=== PATIENT | male | born 1995 | race Two or more races ===

== ENCOUNTER 2025-07-30 16:44 | Inpatient (IN) | payer MEDICAID ==
[~2025-07-30] VITALS: Ht 167.6 cm; Wt 102.6 kg
[2025-07-30 16:50] VITALS: O2SAT 99
[2025-07-30] MEDS: SODIUM CHLORIDE 0.9% 1,000 ML IV ONE ×3 (17:45→20:13)
[2025-07-30 18:01] LABS: HEMATOCRIT. 39.6 % (42.0-52.0); HEMOGLOBIN. 13.5 g/dL (14.0-18.0); MEAN PLATELET VOLUME 7.6 fl (7.4-10.4); PLATELET 207 x1000/uL (130-400); RED BLOOD CELL COUNT 4.33 mill/uL (4.7-6.1); RED CELL DISTRIBUTION WIDTH 14.7 % (11.6-14.6)
[2025-07-30 18:14] LABS: CREATININE 0.7 mg/dL (0.6-1.3); ETHANOL BLOOD < 10 mg/dL (<10); UREA NITROGEN BLOOD < 5 mg/dL (9-23)
[2025-07-30 18:38] LABS: BAND% 1.0 % (1.0-6.0); LYMPHOCYTES % MANUAL 5.0 % (20.0-50.0); MONOCYTES % MANUAL 7.0 % (2.0-8.0); NEUTROPHILS % MANUAL 87.0 % (45.0-75.0); PLATELET ESTIMATE NORMAL
[2025-07-30] MEDS: KCL 20MEQ/100ML PREMIX 100 ML IV SCH (18:59)
[2025-07-30] MEDS: POTASSIUM CHLORIDE 20MEQ/PACKET PO SCH (18:59)
[2025-07-30] MEDS: MAGNESIUM 2 G PREMIX 50 ML IV ONE (19:00)
[2025-07-30] MEDS ORDERED: CLONIDINE 0.1MG TABLET PO PRN (19:30)
[2025-07-30] MEDS ORDERED: DOCUSATE SODIUM 100MG CAPSULE PO PRN (19:30)
[2025-07-30] MEDS ORDERED: IPRATROPIUM/ALBUTEROL 0.5-3(2.5)MG/3ML NEB HHN PRN (19:30)
[2025-07-30] MEDS ORDERED: ONDANSETRON HCL 4MG/2ML INJ IV PRN (19:30)
[2025-07-30] MEDS ORDERED: ACETAMINOPHEN 325MG TABLET PO PRN ×2 (19:30)
[2025-07-30 20:23] LABS: *AMPHETAMINES SCREEN URINE PRESUMPTIVE POSITIVE (NEGATIVE); *BARBITURATES SCREEN URINE NEGATIVE (NEGATIVE); *BENZODIAZEPINES SCREEN URINE NEGATIVE (NEGATIVE); *COCAINE SCREEN URINE PRESUMPTIVE POSITIVE (NEGATIVE); CANNABINOID URINE SCREEN NEGATIVE (NEGATIVE); METHADONE URINE SCREEN NEGATIVE (NEGATIVE); OPIATES URINE SCREEN NEGATIVE (NEGATIVE); PHENCYCLIDINE URINE SCREEN NEGATIVE (NEGATIVE)
[2025-07-30 20:24] LABS: ECSTASY MDMA SCREEN URINE NEGATIVE (NEGATIVE)
[2025-07-30] MEDS: SODIUM CHLORIDE 0.9% 1,000 ML IV SCH (20:52)
[2025-07-30 22:22] VITALS: BP 157/95; PULSE 115; RESP 23; TEMP 37.0852
[2025-07-31] VITALS: BP 132/97; PULSE 90; RESP 24; TEMP 36.9; O2SAT 98
[2025-07-31 04:00] VITALS: BP 135/97; PULSE 92; RESP 18; TEMP 36.6; O2SAT 96
[2025-07-31 06:55] LABS: BASOPHILS % 1.0 % (0.0-2.0); EOSINOPHILS % 1.0 % (0.0-5.0); HEMATOCRIT. 42.2 % (42.0-52.0); HEMOGLOBIN. 14.5 g/dL (14.0-18.0); LYMPHOCYTES % 10.1 % (20.0-50.0); MEAN PLATELET VOLUME 8.2 fl (7.4-10.4); MONOCYTES % 10.4 % (2.0-8.0); NEUTROPHILS % 77.5 % (40.0-76.0); PLATELET 204 x1000/uL (130-400); RED BLOOD CELL COUNT 4.54 mill/uL (4.7-6.1); RED CELL DISTRIBUTION WIDTH 15.0 % (11.6-14.6)
[2025-07-31 07:01] LABS: CREATININE 0.6 mg/dL (0.6-1.3)
[2025-07-31 07:02] LABS: UREA NITROGEN BLOOD < 5 mg/dL (9-23)
[2025-07-31 07:03] LABS: ASPARTATE AMINOTRANSFERASE 136 IU/L (<34)
[2025-07-31 07:04] LABS: BILIRUBIN TOTAL 1.3 mg/dL (0.1-1.0); PHOSPHORUS 2.4 mg/dL (2.5-4.9); PROTEIN TOTAL 7.2 g/dL (6.0-8.3)
[2025-07-31 07:55] LABS: HEPATITIS C AB NON REACTIVE (Neg) (Negative)
[2025-07-31 08:00] VITALS: BP 141/97; PULSE 113; RESP 20; TEMP 37.1; O2SAT 98
[2025-07-31] MEDS: POTASSIUM PHOSPHATE 20 MMOL in DEXT 5% WATER 243.3333 ML IV NR (10:42)
[2025-07-31] MEDS: MULTIVITAMINS,THER W-MINERALS TABLET PO SCH (10:42)
[2025-07-31] MEDS: FOLIC ACID 1MG TABLET PO SCH (10:42)
[2025-07-31] MEDS: THIAMINE HCL 100MG TABLET PO SCH (10:42)
[2025-07-31] MEDS: MAGNESIUM 4 G PREMIX 100 ML IV NR (10:44)
[2025-07-31] MEDS: CHLORDIAZEPOXIDE 25MG CAPSULE PO SCH (13:11)
[2025-07-31] MEDS: AMLODIPINE 5MG TABLET PO SCH (13:11)
[2025-07-31 16:00] VITALS: BP 134/98; PULSE 95; RESP 16; TEMP 36.9; O2SAT 97
[2025-07-31 20:00] VITALS: BP 143/110; PULSE 99; RESP 19; TEMP 37; O2SAT 97
[2025-07-31] MEDS: LORAZEPAM 1MG TABLET PO PRN (21:33)
[2025-08-01] VITALS: BP 139/98; PULSE 106; RESP 18; TEMP 37.2; O2SAT 99
== END 2025-08-01 01:30 | disposition left against medical advice (07) | DRG 425 ==
LOC: ER 17:43 → 3WST 21:15 → EDBEDREQ 21:20 → EDBEDREQTM 21:20 → EDBEDREQ 21:21 → ENRESERV 21:23
PROVIDERS: ADMIT Internal Medicine; ATTEND Internal Medicine
DX: E87.6 Hypokalemia (principal); M62.82 Rhabdomyolysis; E83.39 Other disorders of phosphorus metabolism; Z59.00 Homelessness unspecified; E87.1 Hypo-osmolality and hyponatremia; E83.42 Hypomagnesemia; I10 Essential (primary) hypertension; R74.01 Elevation of levels of liver transaminase levels; F10.90 Alcohol use, unspecified, uncomplicated; F15.10 Other stimulant abuse, uncomplicated; D72.821 Monocytosis (symptomatic); F14.10 Cocaine abuse, uncomplicated; E80.6 Other disorders of bilirubin metabolism; R00.0 Tachycardia, unspecified; Y90.9 Presence of alcohol in blood, level not specified; Z53.29 Procedure and treatment not carried out because of patient's decision for other reasons
CPT/HCPCS: 36415; 71045; 80048; 80053; 80305; 80320; 82550; 83735; 83880; 84100; 85025; 86705; 87340; 93005; 94640; 99285; A4606; J3475; J3480; J3490; J7030; J7060; G0480